=== PATIENT | female | born 1945 | race Caucasian/White ===

== ENCOUNTER 2022-12-19 23:08 | Emergency (ER) | payer MEDICARE, BC ==
[2022-12-20] MEDS ORDERED: Orphenadrine 100 MG Tab.ER PO STA (00:01)
== END 2022-12-20 00:12 | disposition home or self-care (01) ==
LOC: JD.ED 23:08
DX: M62.830 Muscle spasm of back (principal); F17.210 Nicotine dependence, cigarettes, uncomplicated; E78.00 Pure hypercholesterolemia, unspecified; Z79.899 Other long term (current) drug therapy; Z88.0 Allergy status to penicillin; Z88.2 Allergy status to sulfonamides; Z88.8 Allergy status to other drugs, medicaments and biological substances
CPT/HCPCS: 71046; 99283; A9270

== ENCOUNTER 2024-10-02 06:00 | Day surgery (SDC) | payer MEDICARE, BC ==
[~2024-10-02 06:00] MED LIST: Sodium Chloride 0.9% 10 ML Syringe FLUSH PRN; Sodium Chloride 0.9% 10 ML Syringe FLUSH SCH
[2024-10-02] MEDS: Lactated Ringers 1,000 ML IV SCH (06:05)
[2024-10-02] MEDS ORDERED: fentaNYL 100 MCG/2 ML SDV ONE (06:15)
[2024-10-02] MEDS ORDERED: Propofol 200 MG/20 ML SDV ONE (06:15)
[2024-10-02] MEDS: Clindamycin Phosphate in D5W 900 MG in Premix Bag 1 BAG IV ONE (06:16)
[2024-10-02] MEDS: Bupivacaine 0.25% 10 ML SDV ONE (07:13)
[2024-10-02] MEDS: Lidocaine 1% 10 ML MDV ONE (07:13)
== END 2024-10-02 08:05 | disposition home or self-care (01) ==
LOC: JD.SDS 06:00
PROVIDERS: ATTEND Orthopaedic Surgery
DX: M65.842 Other synovitis and tenosynovitis, left hand (principal); M65.312 Trigger thumb, left thumb; E78.2 Mixed hyperlipidemia; F17.210 Nicotine dependence, cigarettes, uncomplicated; Z79.899 Other long term (current) drug therapy
CPT/HCPCS: 26055; J0665; J0736; J2003; J2704; J3010; J7120